=== PATIENT | female | born 2000 | race Caucasian/White ===

== ENCOUNTER 2022-05-07 21:16 | Emergency (ER) | payer OTHER ==
[2022-05-07 21:34] VITALS: BP 115/72; PULSE 75; RESP 18; TEMP 98.3; BMI 24.0
[2022-05-07 23:03] LABS: HCG,QUALITATIVE URINE Negative
[2022-05-07 23:04] LABS: BASO % 0.9 % (0-2.0); EOS % 2.4 % (0-4.5); HEMATOCRIT 34.7 % (32.4-45.2); HEMOGLOBIN 11.4 GM/dL (10.7-15.3); LYMPH % 33.2 % (8-40); MCH 28.3 pg (25.7-33.7); MCHC 32.7 g/dl (32.0-36.0); MEAN CELL VOLUME 86.6 fl (80-96); MONO % 9.2 % (3.8-10.2); NEUT % 54.3 % (42.8-82.8); PLATELET COUNT 197 10^3/uL (134-434); RBC 4.01 M/mm3 (3.60-5.2); RDW 15.5 % (11.6-15.6); WHITE BLOOD COUNT 7.1 K/mm3 (4.0-10.0)
[2022-05-07 23:04] LABS: EPI CELLS 7 /uL (0-25.1); HYALINE CASTS 0 /uL (0-3.1); URINE APPEARANCE TURBID; URINE BACTERIA 114 /uL (0-1359); URINE BILIRUBIN NEGATIVE (NEGATIVE); URINE COLOR YELLOW; URINE GLUCOSE (UA) NEGATIVE (NEGATIVE); URINE KETONE NEGATIVE (NEGATIVE); URINE LEUK ESTERASE NEGATIVE (NEGATIVE); URINE NITRITE NEGATIVE (NEGATIVE); URINE PROTEIN NEGATIVE (NEGATIVE); URINE RBC 11 /uL (0-23.9); URINE UROBILINOGEN 0.2 mg/dL (0.2-1.0); URINE WBC 3 /uL (0-25.8)
[2022-05-07 23:23] LABS: CALCIUM 9.2 mg/dL (8.5-10.1)
[2022-05-07 23:24] LABS: BLOOD UREA NITROGEN 14.1 mg/dL (7-18)
[2022-05-07 23:27] LABS: CREATININE 0.6 mg/dL (0.55-1.3)
[2022-05-07 23:29] LABS: BILIRUBIN,TOTAL 0.2 mg/dL (0.2-1); TOT PROT 7.7 g/dl (6.4-8.2)
[2022-05-07] MEDS ORDERED: SODIUM CHLORIDE 0.9% 500 ML INFUS.BAG IV ONE (23:43)
== END 2022-05-08 00:42 | disposition home or self-care (01) ==
LOC: JER 21:16
DX: R55 Syncope and collapse (principal)
CPT/HCPCS: 0241U-QW; 36415; 80053; 81003; 84439; 84443; 84703; 85025; 87077; 87086; 93005; 93010; 99284-25

== ENCOUNTER 2022-12-04 09:25 | Emergency (ER) | payer OTHER ==
[2022-12-04 09:34] VITALS: BP 101/74; PULSE 79; RESP 20; TEMP 97.9; BMI 26.1
[2022-12-04] MEDS ORDERED: KETOROLAC TROMETHAMINE 15 MG/ML VIAL IM ONE ×2 (09:56→10:50)
[2022-12-04] MEDS ORDERED: LIDOCAINE 5% TOPICAL PATCH TP ONE (09:57)
[2022-12-04] MEDS ORDERED: ACETAMINOPHEN 500 MG TABLET (FP) PO ONE (09:57)
[2022-12-04] MEDS ORDERED: LIDOCAINE 5% TOPICAL PATCH ONE (10:03)
[2022-12-04] MEDS ORDERED: ACETAMINOPHEN 500 MG TABLET (FP) ONE (10:04)
[2022-12-04] MEDS ORDERED: KETOROLAC TROMETHAMINE 15 MG/ML VIAL ONE ×2 (10:04→11:02)
[2022-12-04] MEDS ORDERED: diazePAM 2 MG TABLET PO ONE (11:01)
[2022-12-04] MEDS ORDERED: diazePAM 2 MG TABLET ONE (11:02)
[2022-12-04] MEDS ORDERED: LIDOCAINE PATCH REMOVAL MC SCH (22:00)
== END 2022-12-04 11:54 | disposition home or self-care (01) ==
LOC: JERFT 09:25
PROC: 3E0233Z Introduction of Anti-inflammatory into Muscle, Percutaneous Approach (ICD-10-PCS; principal; 2022-12-04)
PROC: 3E0233Z Introduction of Anti-inflammatory into Muscle, Percutaneous Approach (ICD-10-PCS; 2022-12-04)
DX: M54.50 Low back pain, unspecified (principal); X50.0XXA Overexertion from strenuous movement or load, initial encounter; Y93.89 Activity, other specified; Y92.830 Public park as the place of occurrence of the external cause
CPT/HCPCS: 96372; 99284-25

== ENCOUNTER 2023-01-10 12:12 | Emergency (ER) | payer OTHER ==
[2023-01-10 12:27] VITALS: BP 109/61; PULSE 72; RESP 17; TEMP 98.6; BMI 27.3
== END 2023-01-10 13:03 | disposition home or self-care (01) ==
LOC: JERFT 12:12
PROC: 0HQFXZZ Repair Right Hand Skin, External Approach (ICD-10-PCS; principal; 2023-01-10)
DX: S61.210A Laceration without foreign body of right index finger without damage to nail, initial encounter (principal); W26.0XXA Contact with knife, initial encounter; Y93.G1 Activity, food preparation and clean up
CPT/HCPCS: 99283-25